=== PATIENT | female | born 1980 | race Caucasian/White ===

== ENCOUNTER → 2016-04-01 | Day surgery (SDC) | payer OTHER ==
--- NOTE | 2016-03-30 16:10 | History & Physical Pre-Op ---
General Information and HPI History of Present Illness: Cherelle is a 35-year-old female with a long-standing complaint of heel pain. The patient has undergone an extended course of conservative care, including shoe gear and activity modification, rest, immobilization and courses of NSAIDs. None of this is yielded her any significant relief. The patient presents today for preoperative surgical consultation. Allergies/Medications Allergies: Coded Allergies: NO KNOWN ALLERGIES (03/27/16) Past History Medical History Cardiovascular: hyperlipidemia Respiratory: asthma Surgical History Pertinent Surgical History: non-contributory Review of Systems Review of Systems: Unremarkable except for that noted in history of present illness Exam & Diagnostic Data Physical Exam: Lungs clear bilaterally. Heart sounds rate and rhythm regular. Lower extremity physical exam demonstrates intact pedal pulses bilaterally. Pulses dorsalis pedis and posterior tibial arteries are palpable bilaterally. Patient without any sensory motor deficits. Deep tendon reflexes grossly intact. Patient noted to have significant pain with palpation to the plantar medial heel. There is a negative Tinel sign noted with percussion of the posterior tibial nerve. Ankle range of motion noted to be diminished, especially in dorsiflexion. Assessment/Plan Assessment/Plan: Gastrocnemius equinus and chronic plantar fascial Ramesh's. A lengthy discussion reviewing both surgical and conservative options was held the patient at bedside and the patient elects to go forward with surgery despite the risks. As Ranked By This Provider Problem List: 1. Plantar fascial fibromatosis Attending MD Review Statement Attending Statement Attending MD Statement: examined this patient
[~2016-04-01] VITALS: Ht 167.6 cm; Wt 111.1 kg
--- NOTE | 2016-04-01 11:08 | Operative Report ---
Operative/Inv Procedure Report Surgery Date: 04/01/16 Name of Procedure: 1 gastrocnemius recession right 2 plantar fasciotomy right Pre-Operative Diagnosis: 1 gastrocnemius equinus right 2 chronic plantar fasciosis right Post-Operative Diagnosis: The same Estimated Blood Loss: scant Surgeon/People Greeter: ANNE MARIE VALDEZ DPM Anesthesia: moderate sedation, block Operative/Procedure Note Note: After obtaining informed consent the patient was brought to the operating room and placed on the operating table in supine position. The patient isn't securely fastened to the operating table utilizing safety belt. After administration of IV sedation, 10 mL of 0.5% Marcaine plain was infiltrated about the patient's right ankle. A well-padded calf tourniquet was placed about the patient's right upper calf. 2 g of Ancef were delivered intravenously times one dose. Right lower extremity was scrubbed prepped and draped in usual aseptic manner. The right lower extremity was elevated to examine to limb, at which point the calf tourniquet was inflated 250 mmHg. Attention was directed to the distal medial right leg, where a linear incision was made 2 fingerbreadths distal to the medial have a gastrocnemius muscle. Skin was sized and 15 blade and deepened subtenons tissues. Interval was developed down to the medial margin of the gastroc fascia. The peritenon was from the fascia and the sural nerve was identified and protected. A gastrocnemius recession was then performed. The deep tissues reports a 4-0 Vicryl and the skin is reprepped for nylon. Attention was then directed distally to the plantar medial heel, where portals well-developed with a sterile 62 K wire at 5 mm intervals along the origin of the medial subcutaneous the plantar fascia. The tissue was then ablated with the Bridgefy micro-ablator. A incision was then carried down to the medial margin of the plantar fascial which was released from the medial tubercle of the calcaneal tuberosity. The deep tissues were then reapproximated 4-0 Vicryl and the skin is reapproximated 4-0 nylon. The incisions were dressed with [place] dressings and Coban. The patient was noted to tolerate both procedure and anesthesia well and the patient was transported from the operating room to recovery by sent stable best assess intact all digits right foot.
== END ==
LOC: STS 03:51
DX: M21.6X1 Other acquired deformities of right foot (principal); M72.2 Plantar fascial fibromatosis; E78.5 Hyperlipidemia, unspecified; J45.909 Unspecified asthma, uncomplicated
CPT/HCPCS: 36415; 81025; J0690; J2001; J2250